=== PATIENT | male | born 1970 | race Two or more races ===

== ENCOUNTER 2020-10-01 16:26 | Emergency (ER) | payer SELFPAY ==
[~2020-10-01] VITALS: Ht 170.2 cm; Wt 81.6 kg
[2020-10-01 17:07] VITALS: BP 154/86
[2020-10-01] MEDS ORDERED: TETANUS-DIPTH-ACEL PERTUSSIS 0.5ML SYR Tdap IM ONE (18:15)
[2020-10-01] MEDS ORDERED: KETOROLAC TROMETH 60MG/2ML VIAL IM ONE (18:15)
== END 2020-10-01 18:33 | disposition home or self-care (01) ==
LOC: ER 16:26 → EDSEX 16:26 → ER 18:33
DX: S71.111A Laceration without foreign body, right thigh, initial encounter (principal); S83.8X1A Sprain of other specified parts of right knee, initial encounter; X50.0XXA Overexertion from strenuous movement or load, initial encounter; Y93.89 Activity, other specified; Y92.89 Other specified places as the place of occurrence of the external cause; Y99.8 Other external cause status
CPT/HCPCS: 12001; 73562; 90471; 90715; 96372; 99284; J1885